=== PATIENT | female | born 1935 | race African-American/Black ===

== ENCOUNTER → 2016-12-11 | Day surgery (SDC) | payer MEDICARE ==
[2016-12-11] VITALS (8 sets, daily range): BP systolic 120–134; BP diastolic 50–86
[~2016-12-11] VITALS: Ht 185.4 cm; Wt 87.1 kg
[~2016-12-11] MED LIST: ASPIR 8181 MG ORAL; Akten 3.5% 1ml Btl ONE; BSS 15ml BTL ONE; BSS 500ml btl ONE; CALCIUM600 M1 PO; COQ-10100 M1 PO; Carbachol 0.01% Op Soln 1.5ml vial ONE; DILTIAZEM 24HR120 M1 ORAL; Dexamethasone 4mg/ml vial ONE; Diclofenac Sod 0.1% Op Soln ONE; EPINEPHrine 1mg/1ml Amp ONE; FISH OIL 1,2001 EAC3 PO; Gatifloxacin Opth Solution 0.5% ONE; Hydromorphone 0.5mg/0.5ml inj IVP PRN; IRON325 M1 PO; LOSARTAN POTAS100 MG ORAL; Lidocaine 1% MPF 10mg/ml 5ml ONE; MAGNESIUM500 MG PO; Midazolam 2mg/2ml Inj ONE; NS Irrig 1000ml ONE; PRAVASTATIN SOD20 M1 ORAL; Phenylephrine 2.5% Op Soln ONE; Povidone-Iodine 5% opth solution ONE; Propofol 10mg/ml 20ml IV ONE; Sodium Hyaluronate 14 mg/ml 0.85ml ONE; Sterile Water Irrig 1000ml IRRIG ONE; TYLENOL EXTRA500 MG ORAL; Tetracaine 0.5% Opth Soln ONE; Tobradex Opth Susp 2.5ml ONE; Tropicamide 1% Opth Soln ONE; VITAMIN C500 M1 ORAL; VITAMIN D1000 UNI1 ORAL; WARFARIN SODIUM5 MG ORAL; acetaZOLAMIDE 500mg Inj ONE; fentaNYL 100 mcg/2 mL IV ONE
[2016-12-11] MEDS: Tropicamide 1% Opth Soln RIGHT EYE SCH ×3 (05:51→06:10)
[2016-12-11] MEDS: Akten 3.5% 1ml Btl RIGHT EYE SCH ×3 (05:52→06:10)
[2016-12-11] MEDS: Diclofenac Sod 0.1% Op Soln RIGHT EYE SCH ×3 (05:52→06:11)
[2016-12-11] MEDS: Gatifloxacin Opth Solution 0.5% RIGHT EYE SCH ×3 (05:52→06:11)
[2016-12-11] MEDS: Tobradex Opth Susp 2.5ml RIGHT EYE SCH ×3 (05:52→06:11)
[2016-12-11] MEDS: Phenylephrine 2.5% Op Soln RIGHT EYE SCH ×3 (05:52→06:11)
--- NOTE | 2016-12-11 07:35 | Pre-Procedure Note/Attestation ---
Pre-Procedure Note/Attestation Complete Prior to Procedure Planned Procedure: right Procedure Narrative: cataract extraction with implant right eye Indications for Procedure Pre-Operative Diagnosis: cataract right eye Attestation I attest that I discussed the nature of the procedure; its benefits; risks and complications; and alternatives (and the risks and benefits of such alternatives ), prior to the procedure, with the patient (or the patient's legal loss prevention representative). I attest that, if there was a reasonable possibility of needing a blood transfusion, the patient (or the patient's legal loss prevention representative) was given the [facility] standardized written summary, pursuant to the Har[place] Blood Safety Act ([place] Health and Safety Code # 1645, as amended). I attest that I re-evaluated the patient just prior to the surgery and that there has been no change in the patient's H&P, except as documented below: MICHAEL MCCOY Dec 11, 2016 07:34
--- NOTE | 2016-12-11 07:54 | Anethesia Preoperative Eval ---
Anesthesia Pre-op PMH/ROS General Date of Evaluation: Dec 11, 2016 Time of Evaluation: 07:30 Anesthesiologist: ELISE ASA Score: ASA 3 Mallampati Score Class I : Soft palate, uvula, fauces, pillars visible Class II: Soft palate, uvula, fauces visible Class III: Soft palate, base of uvula visible Class IV: Only hard plate visible Mallampati Classification: Class II Surgeon: NADINE Diagnosis: CATARACT R EYE Surgical Procedure: REMOVAL CATARACT LENS IMPLANT Anesthesia History: none Family History: no anesthesia problems Allergies: Coded Allergies: CODEINE (Verified Allergy, Unknown, 08/06/16) Medications: see eMAR Past Medical History Cardiovascular: Reports: HTN, other - HX PE Pulmonary: Denies: COPD, JANINA, asthma, other Gastrointestinal/Genitourinary: Denies: CRI, ESRD, GERD, other Neurologic/Psychiatric: Denies: CVA, TIA, dementia, depression/anxiety, other Endocrine: Denies: DM, hypothyroidism, other, steroids HEENT: Reports: cataract (L), cataract (R) Hematology/Immune: Denies: DVT, anemia, bleeding disorder, other Musculoskeletal/Integumentary: Denies: DDD, DJD, OA, RA, edema, other Anesthesia Pre-op Phys. Exam Physician Exam Last Vital Signs Date Time Temp Pulse Resp B/P Pulse Ox O2 Delivery O2 Flow Rate FiO2 12/11/16 06:02 97.1 51 18 134/86 97 Room Air Constitutional: NAD Neurologic: CN 2-12 intact Cardiovascular: RRR Respiratory: CTA Gastrointestinal: S/NT/ND Airway Exam Mallampati Score: Class II MO: full ROM: full Teeth: intact Dentures: lower, upper Anesthesia Pre-op A/P Risk Assessment & Plan Assessment: ASA 3 Plan: MAC Status Change Before Surgery: No Pre-Antibiotics Given Within 1 Hr of Incision: VIVIANA Esteban M.D. Dec 11, 2016 07:54
--- NOTE | 2016-12-11 07:55 | Immediate Post-Op Evaluation ---
Immediate Post-Op Evalulation Immediate Post-Op Evalulation Procedure: CATARACT REMOVAL LENS IMPLANT L Date of Evaluation: Dec 11, 2016 Time of Evaluation: 08:10 IV Fluids: 450 Blood Products: 0 Estimated Blood Loss: 0 Urinary Output: 0 Blood Pressure Systolic: 138 Blood Pressure Diastolic: 72 Pulse Rate: 48 Respiratory Rate: 11 O2 Sat by Pulse Oximetry: 99 Temperature (Fahrenheit): 98 Pain Score (1-10): 1 Nausea: No Vomiting: No Patient Status: awake, patent, none Hydration Status: adequate Given Within 1 Hr of Incision: VIVIANA Esteban M.D. Dec 11, 2016 07:55
--- NOTE | 2016-12-11 07:56 | 48 Hour Post Anesthesia Eval ---
Post Anesthesia Evaluation Procedure: CATARACT REMOVAL LENS IMPLANT L Date of Evaluation: Dec 11, 2016 Time of Evaluation: 11:30 Blood Pressure Systolic: 122 Pulse Rate: 55 Respiratory Rate: 15 Temperature (Fahrenheit): 98 O2 Sat by Pulse Oximetry: 99 Airway: patent Nausea: No Vomiting: No Hydration Status: adequate Mental Status/LOC: patient returned to baseline Post-Anesthesia Complications: 0 Follow-up care needed: ready to discharge VIVIANA OLIVARES M.D. Dec 11, 2016 07:56
--- NOTE | 2016-12-11 08:10 | Brief Operative Note ---
Immediate Post Operative Note Operative Note Pre-op Diagnosis: cataract right eye Procedure: phacoemulsification of cataract with implant right eye Post-op Diagnosis: same as pre-op Surgeon: michael smith Natural Resource Specialist: none Anesthesiologist: minna yoder Anesthesia: MAC Specimen: none Complications: none Condition: stable Drains: none Implant(s) used?: Yes MICHAEL SMITH Dec 11, 2016 08:10
--- NOTE | 2016-12-11 12:28 | Operative Note - Dictated ---
DATE OF OPERATION: 12/11/2016 PREOPERATIVE DIAGNOSIS: Cataract, right eye. POSTOPERATIVE DIAGNOSIS: Cataract, right eye. PROCEDURE: Phacoemulsification, cataract, right eye, with placement of posterior intraocular lens. SURGEON: Edis Rowell M.[place]. [place] [place] DIRECTOR OF NURSES REGISTRY: None. ANESTHESIA: MAC/topical. ANESTHESIOLOGIST: Dr. Arley William. INDICATION FOR PROCEDURE: Poor vision, right eye. DESCRIPTION OF FINDINGS: Nuclear sclerotic and cortical cataract, right eye. DESCRIPTION OF PROCEDURE: The patient received a topical anesthetic block consisting of 3.5% Akten eye drops. The eye was then prepped and draped in the usual manner. A lid speculum was placed. An operating Zeiss microscope was positioned. A temporal corneal groove was then made with the sudarshan blade. A SuperSharp blade made a stab incision at the 12 o'clock position. A 0.1 mL of 1% non-preservative intracameral lidocaine was injected. Healon was instilled into the anterior chamber and a 2.5/2.8 mm trapezoidal sudarshan blade was used to complete the temporal corneal wound. A cystotome was used to create an anterior capsular flap. Utrata forceps was used to complete the capsulorrhexis. BSS on a cannula was used to hydrodissect the nucleus. The lens nucleus was phacoemulsified in a phaco-fracture technique. Remaining cortical material was removed with the I/A and the posterior capsule polished with the I/A on Cap vac. Healon was reinstilled in the capsular bag and the anterior chamber and an Garcia foldable one-piece posterior chamber intraocular lens, model ZCB00, power, 28.0 diopter, serial #[id number] was placed in the injector. The lens was put in the capsular bag. The I/A tip was used to remove the Healon and position the lens. The wound edge was hydrated with BSS and a blunt-tipped cannula. The wound was checked and found to be watertight. The lid speculum was removed and a drop of TobraDex and and Zymaxid was placed. A clear plastic shield was taped over the eye. The patient tolerated well and left the operating room in good condition condition. Edis Rowell M.D. (CSM) DR: Dalia JOB#: [id number] CC:
== END | disposition home or self-care (01) ==
LOC: SUR 05:30
DX: H25.11 Age-related nuclear cataract, right eye (principal); H25.011 Cortical age-related cataract, right eye; M19.90 Unspecified osteoarthritis, unspecified site; M54.9 Dorsalgia, unspecified; M54.12 Radiculopathy, cervical region; J43.9 Emphysema, unspecified; E78.00 Pure hypercholesterolemia, unspecified; I10 Essential (primary) hypertension; M81.0 Age-related osteoporosis without current pathological fracture; N28.1 Cyst of kidney, acquired; G47.33 Obstructive sleep apnea (adult) (pediatric); E04.1 Nontoxic single thyroid nodule; I27.2 Other secondary pulmonary hypertension; D68.59 Other primary thrombophilia; I73.9 Peripheral vascular disease, unspecified; I71.2 Thoracic aortic aneurysm, without rupture; I70.0 Atherosclerosis of aorta; E89.0 Postprocedural hypothyroidism; Z87.891 Personal history of nicotine dependence; Z90.710 Acquired absence of both cervix and uterus; Z86.718 Personal history of other venous thrombosis and embolism; Z86.711 Personal history of pulmonary embolism; Z79.01 Long term (current) use of anticoagulants; Z88.5 Allergy status to narcotic agent
CPT/HCPCS: 66984; J0171; J1100; J2250; J2405; J2704; J3010; V2632; 94003; 94150